=== PATIENT | female | born 1985 | race Caucasian/White ===

== ENCOUNTER 2016-08-08 10:19 | Outpatient (CLI) | payer SELFPAY ==
[2016-08-08 11:43] VITALS: BP 103/48
--- NOTE | 2016-08-09 07:40 | Ultrasound Report ---
OB ULTRASOUND History: well being, dates, evaluate amniotic fluid. Technique: Transabdominal ultrasound with Doppler interrogation. Gestation: Single Position: Cephalic Amniotic Fluid: Normal SAVI = 16.8 cm Placenta: Anterior Placental Grade: 1 Heart Rate: 135 BPM Cervical length: The cervix is obscured cm (Normal > 3 cm) NEUROANATOMY VISUALIZED: limited ANATOMY VISUALIZED: Stomach Kidneys Bladder Diaphragm 4 Chamber Heart Heart 3 Vessel Cord Abd. Cord Insert SPINE VISUALIZED: Longitudinal The following are not demonstrated due to maternal body habitus or lie: Neuroanatomy, cervix BPD: 8.7 cm = 35 w 0 d HC: 32.8 cm = 37 w 2 d AC: 35.5 cm = 39 w 3 d FL: 7.4 cm = 38 w 0 d HC/AC Ratio: 0.9 Cephalic Index: 72.5 Estimated Weight: 3449 grams LMP: Uncertain Clinical age = w d EDC: US Gest. Age = 37 w 3 d EDC: 08/26/16 Comment: Sonographic images of the abdomen demonstrate mild pyelocaliectasis in the right kidney. Separation within the right renal pelvis measures up to 4 mm. Followup is recommended.
== END 2016-08-08 14:12 | disposition home or self-care (01) ==
LOC: TRG 10:19
PROVIDERS: ATTEND Obstetrics & Gynecology
DX: O47.1 False labor at or after 37 completed weeks of gestation (principal); Z3A.40 40 weeks gestation of pregnancy
CPT/HCPCS: 59025; 76805